=== PATIENT | female | born 1995 ===

== ENCOUNTER → 2020-07-22 | Outpatient (CLI) | payer BC ==
--- NOTE | 2020-07-22 08:04 | RAD ---
Neck soft tissue ultrasound HISTORY: Palpable nodule left neck. FINDINGS: At the area of interest left lateral neck overlying the cervical mastoid muscle there is a lymph node which measures 1.8 x 0.4 x 1.2 cm with mild cortical thickening and there appears be effac ement of the echogenic fatty hilum. No other masses or lymph nodes at this region of the left lateral neck documented. IMPRESSION: The patient's palpable lump corresponds to a 1.8 x 0.4 x 1.2 cm lymph node with cortical thickening and effacement of the echogenic fatty hilum. This could be reactive lymph node or a pathol ogic neoplastic lymph node based on its size and morphology. Short-term follow-up ultrasound in 3 mon s to document this resolves versus further assessment with core needle biopsy could be considered. Electronically signed by: Ang Cyr MD (07/22/2020 8:02 AM) [id number]
== END ==
LOC: US 06:59
PROVIDERS: ATTEND Nurse Practitioner Family
DX: R59.1 Generalized enlarged lymph nodes (principal)
CPT/HCPCS: 76536